=== PATIENT | female | born 1990 | race African-American/Black ===

== ENCOUNTER 2025-02-08 16:07 | Emergency (ER) | payer OTHER ==
[~2025-02-08] VITALS: Ht 165.1 cm; Wt 109.0 kg
[2025-02-08 16:09] VITALS: O2SAT 98
[2025-02-08 18:39] LABS: BASOPHILS % 0.8 % (0.0-2.0); EOSINOPHILS % 1.1 % (0.0-5.0); HEMATOCRIT. 42.7 % (36.0-48.0); HEMOGLOBIN. 14.6 g/dL (12.0-16.0); LYMPHOCYTES % 31.7 % (20.0-50.0); MEAN PLATELET VOLUME 7.0 fl (7.4-10.4); MONOCYTES % 6.3 % (2.0-8.0); NEUTROPHILS % 60.1 % (40.0-76.0); PLATELET 308 x1000/uL (130-400); RED BLOOD CELL COUNT 4.71 mill/uL (4.2-5.4); RED CELL DISTRIBUTION WIDTH 13.4 % (11.6-14.6)
[2025-02-08 18:52] LABS: INR 1.0
[2025-02-08 18:55] LABS: HCG SCREEN NEGATIVE
[2025-02-08 18:57] LABS: CREATININE 0.8 mg/dL (0.6-1.0)
[2025-02-08 18:58] LABS: UREA NITROGEN BLOOD 11 mg/dL (9-23)
[2025-02-08 18:59] LABS: ASPARTATE AMINOTRANSFERASE 17 IU/L (<34)
[2025-02-08 19:00] LABS: BILIRUBIN DIRECT 0.1 mg/dL (<=3.0); BILIRUBIN TOTAL 0.5 mg/dL (0.1-1.0); PROTEIN TOTAL 7.1 g/dL (6.0-8.3); TROPONIN I HIGH SENSITIVITY < 4 ng/L (3.0-34)
[2025-02-08 19:24] VITALS: BP 118/74; PULSE 88; RESP 15; TEMP 37.1; O2SAT 99
== END 2025-02-08 19:25 | disposition home or self-care (01) ==
LOC: ER 16:07
DX: R07.89 Other chest pain (principal); F43.9 Reaction to severe stress, unspecified; I10 Essential (primary) hypertension; R06.02 Shortness of breath
CPT/HCPCS: 36415; 71045; 80048; 80076; 83735; 83880; 84484; 84703; 85025; 85379; 93005; 99285